=== PATIENT | female | born 1975 | race American Indian/Alaskan Native ===

== ENCOUNTER 2016-07-12 04:32 | Emergency (ER) | payer BC, OTHER ==
[2016-07-12 04:40] VITALS: BP 103/83
[2016-07-12] MEDS ORDERED: methylPREDNISolone Sodium Succinate 125 MG/2 ML SDV IM ONE (04:43)
[2016-07-12] MEDS ORDERED: Albuterol/Ipratropium 3.0-0.5 MG/3 ML Neb Soln NEB ONE (04:43)
[2016-07-12] MEDS ORDERED: cefTRIAXone 1 GM, Lidocaine 1% 2.1 ML IM ONE ×2 (04:43)
--- NOTE | 2016-07-12 04:45 | EDM.PDOC ---
[id number]: CHEST HURTS, COUGH, FEVER Time Seen by Provider: 07/12/16 04:44 Source of Information: Reports: Patient History Limitations: Reports: No limitations - History of Present Illness INITIAL COMMENTS - FREE TEXT/NARRATIVE: Sx all day - Related Data Allergies/ADRs: Allergies Allergy/AdvReac Type Severity Reaction Status Date / Time No Known Allergies Allergy Verified 07/12/16 04:43 Home Meds: Home Meds . [No Known Home Meds] 05/09/13 [History] Past Medical History - Past Surgical History HEENT Surgical History: Reports: Other (see below) Other HEENT Surgeries/Procedures: teeth extraction Female Surgical History: Reports: Tubal ligation Social & Family History - Family History Family Medical History: Noncontributory - Tobacco Use Smoking Status *Q: Never Smoker Second Hand Smoke Exposure: Yes - Caffeine Use Caffeine Use: Reports: Coffee, Soda - Alcohol Use Days Per Week of Alcohol Use: 0 Date of Last Drink: 06/12/16 - Recreational Drug Use Recreational Drug Use: No ED ROS GENERAL - Review of Systems Review Of Systems: ROS reveals no pertinent complaints other than HPI. ED EXAM, GENERAL - Physical Exam Exam: See Below Exam Limited By: No limitations General Appearance: alert, WD/WN, mild distress, other (episodic cough spasms) Ears: hearing grossly normal Throat/Mouth: Normal voice, No airway compromise Head: atraumatic Neck: non-tender, full range of motion Respiratory/Chest: no respiratory distress, no accessory muscle use, rhonchi, wheezing. No: decreased breath sounds Cardiovascular: regular rate, rhythm GI/Abdominal: soft, non tender Neurological: alert, oriented, normal cognition, normal gait, no motor/sensory deficits Psychiatric: normal affect, normal mood Skin Exam: Warm, Dry Lymphatic: no adenopathy Course - Vital Signs Last Recorded V/S: Last Vital Signs Temp 35.9 C 07/12/16 04:34 Pulse 90 07/12/16 04:34 Resp 17 07/12/16 04:34 BP 103/83 07/12/16 04:34 Pulse Ox 99 07/12/16 04:34 - Orders/Labs/Meds Meds: Medications Discontinued Medications Generic Name Dose Route Start Last Admin Trade Name Freq PRN Reason Stop Dose Admin Albuterol/Ipratropium 3 ml 07/12/16 04:43 07/12/16 04:52 Duoneb 3.0-0.5 Mg/3 Ml NEB 07/12/16 04:44 3 ml ONETIME ONE Administration Ceftriaxone Sodium 1 gm/ 0 gm 07/12/16 04:43 07/12/16 04:51 Lidocaine HCl 2.1 ml IM 07/12/16 04:44 2.1 inj ONETIME ONE Administration Methylprednisolone Sodium Succinate 125 mg 07/12/16 04:43 07/12/16 04:51 Solu-Medrol IM 07/12/16 04:44 125 mg ONETIME ONE Administration - Re-Assessments/Exams Free Text/Narrative Re-Assessment/Exam: 07/12/16 04:51 s/p duoneb + rocephin + solumedrol = better Departure - Departure Time of Disposition: 05:10 Disposition: Home, Self-Care 01 Condition: good Clinical Impression: Bronchospasm with bronchitis, acute Instructions: Acute Bronchitis, [id number] Forms: ED Department Discharge Additional Instructions: 1) sleep as much as possible 2) drink lots of liquids 3) don't sleep flat 4) follow up at clinic or recheck as needed rx given: phenergan codeine syrup qid prn x 4oz
== END 2016-07-12 05:09 | disposition home or self-care (01) ==
LOC: DL.ED 04:32
DX: J20.9 Acute bronchitis, unspecified (principal)
CPT/HCPCS: 96372; 99283; J0696; J2930